=== PATIENT | female | born 1970 | race Caucasian/White ===

== ENCOUNTER 2016-12-31 20:59 | Emergency (ER) | payer BC, OTHER ==
[~2016-12-31] VITALS: Ht 162.6 cm; Wt 65.8 kg
--- NOTE | 2016-12-31 21:05 | NUR ---
PATIENT BIB [facility] C/O SUDDEN ONSET DIZZINESS, NAUSEA, AND VOMITING AT HOME. PATIENT IS A/OX 4. BREATHING EVEN AND UNLABORED. NO SOB. VITALS STABLE. SAFETY AND COMFORT MEASURES IN PLACE. AWAITING MD ORDERS
[2016-12-31] MEDS ORDERED: MECLIZINE HCL 25 MG TABLET ONE (21:06)
--- NOTE | 2016-12-31 21:10 | NUR ---
PATIENT HAS IV FROM [facility] ON ROUTE ON [address], 20 G.
[2016-12-31 21:16] LABS: BASOPHILS # (AUTO) 0.1 /CMM (0.0-0.2); BASOPHILS % (AUTO) 0.8 % (0.0-2.0); EOSINOPHILS # (AUTO) 0.4 /CMM (0.0-0.7); EOSINOPHILS % (AUTO) 4.3 % (0.0-6.0); HEMATOCRIT 41 % (33-45); HEMOGLOBIN 13.9 g/dL (11.5-14.8); LYMPHOCYTES # (AUTO) 3.8 /CMM (0.8-4.8); LYMPHOCYTES % (AUTO) 42.2 % (20.0-44.0); MEAN CORPUSCULAR HEMOGLOBIN 31 PG (26.0-33.0); MEAN CORPUSCULAR HGB CONC 34 g/dl (31.0-36.0); MEAN CORPUSCULAR VOLUME 90 fL (82-100); MONOCYTES # (AUTO) 0.6 /CMM (0.1-1.30); MONOCYTES % (AUTO) 6.6 % (2.0-12.0); NEUTROPHILS # (AUTO) 4.2 /CMM (1.8-8.9); NEUTROPHILS % (AUTO) 46.1 % (43.0-81.0); PLATELET COUNT (AUTO) 313 /CMM (150-450); RDW COEFFICIENT OF VARIATION 12.2 (11.5-15.0); WHITE BLOOD COUNT (AUTO) 9.1 K/uL (4.3-11.0)
--- NOTE | 2016-12-31 21:16 | NUR ---
PATIENT MEDICATED PER MD ORDERS.
[2016-12-31 21:23] LABS: CALCIUM, SERUM 8.3 mg/dL (8.5-10.1); CARBON DIOXIDE 25 mmol/L (21-32); CHLORIDE 104 mmol/L (98-107); CREATININE 0.8 mg/dL (0.6-1.3); GLUCOSE 139 mg/dL (74-106); POTASSIUM 3.7 mmol/L (3.5-5.1); SODIUM SERUM 138 mmol/L (136-145); UREA NITROGEN, BLOOD 11 mg/dL (7-18)
[2016-12-31] MEDS ORDERED: IV NS 0.9% 500 ML BAG IV ONE (21:30)
[2016-12-31] MEDS ORDERED: MECLIZINE HCL 25 MG TABLET PO ONE (21:30)
[2016-12-31 21:33] LABS: TROPONIN I < 0.017 ng/mL (0.00-0.056)
--- NOTE | 2016-12-31 21:44 | NUR ---
PATIENT TAKEN TO CT VIA WHEELCHAIR.
--- NOTE | 2016-12-31 21:52 | NUR ---
PATIENT RETURNED FROM CT IN STABLE CONDITION.
[2016-12-31] MEDS ORDERED: LIDOCAINE 1%-EPI 1:100,000 50 ML VIAL IJ ONE (21:54)
[2016-12-31 22:09] VITALS: BP 131/71
--- NOTE | 2016-12-31 22:10 | NUR ---
Patient's iv removed from lac. Patient discharged to home in stable condition. Prescription given to patient. Written and verbal after care instructions given. Patient verbalizes understanding of instruction.
== END 2016-12-31 22:10 | disposition home or self-care (01) ==
LOC: ER 21:01
DX: H81.399 Other peripheral vertigo, unspecified ear (principal); F41.9 Anxiety disorder, unspecified; Z88.5 Allergy status to narcotic agent
CPT/HCPCS: 36415; 70450-TC; 71010-TC; 80048-TC; 84484-TC; 85025-TC; A4606; A6402; J3490; J7040; J8597; Z7610